=== PATIENT | female | born 1990 | race American Indian/Alaskan Native ===

== ENCOUNTER 2017-01-31 13:42 | Emergency (ER) | payer MEDICAID ==
[2017-01-31 13:47] VITALS: RESP 18; TEMP 97.8
[2017-01-31 13:50] VITALS: BMI 22.4
--- NOTE | 2017-01-31 14:44 | RAD ---
PROCEDURE: Right Ankle Radiographs. HISTORY: injury COMPARISON: None available FINDINGS: BONES: No acute displaced fracture. JOINTS: No dislocation. SOFT TISSUES: Soft tissue swelling. No evidence of radiopaque foreign body. OTHER FINDINGS: None. IMPRESSION: Soft tissue swelling. No acute displaced fracture, dislocation, or significant joint effusion identified. If symptoms persist or if there is clinical concern, x-ray follow-up in 7-10 days should be considered.
--- NOTE | 2017-01-31 14:48 | RAD ---
PROCEDURE: Right Foot Radiographs. HISTORY: foot injury COMPARISON: None available. FINDINGS: BONES: No acute displaced fracture. JOINTS: Joint space narrowing at the DIP of the 5th digit. No dislocation. SOFT TISSUES: Soft tissue swelling. No evidence of radiopaque foreign body. OTHER FINDINGS: None. IMPRESSION: Soft tissue swelling. No acute displaced fracture, dislocation, or significant joint effusion identified. If symptoms persist, or if there is continued clinical concern, x-ray follow-up in 7-10 days should be considered.
--- NOTE | 2017-01-31 14:55 | C.PDOC ---
History Of Present Illness 26 y/o female presents to ED with complaints of right ankle and foot pain since earlier today. Patient states she accidentally kicked bed and developed pain. Patient reports history of right ankle fracture and denies other injury, change in sensation or any other complaints at this time. Time Seen by Provider: 01/31/17 13:54 Chief Complaint (Nursing): Lower Extremity Problem/Injury History Per: Patient History/Exam Limitations: no limitations Onset/Duration Of Symptoms: Hrs Current Symptoms Are (Timing): Still Present Past Medical History Reviewed: Historical Data, Nursing Documentation, Vital Signs Vital Signs: Last Vital Signs Temp 97.8 F 01/31/17 13:45 Pulse 82 01/31/17 15:30 Resp 18 01/31/17 15:30 BP 118/65 01/31/17 15:30 Pulse Ox 98 01/31/17 15:30 - Medical History PMH: Anxiety, Asthma, Bronchitis Surgical History: - [facility] Procedures LOW CERVICAL (12/25/12) Family History: States: No Known Family Hx - Social History Hx Tobacco Use: Yes Hx Alcohol Use: No Hx Substance Use: No - Immunization History Hx Tetanus Toxoid Vaccination: Yes Hx Influenza Vaccination: Yes Hx Pneumococcal Vaccination: Yes Review Of Systems Constitutional: Negative for: Fever, Chills Eyes: Negative for: Vision Change Cardiovascular: Negative for: Chest Pain Gastrointestinal: Negative for: Nausea, Vomiting Musculoskeletal: Positive for: Foot Pain Skin: Negative for: Rash Neurological: Negative for: Weakness, Numbness Physical Exam - Physical Exam Appears: Non-toxic, No Acute Distress Skin: Warm, Dry, No Rash Head: Atraumatic, Normacephalic Eye(s): bilateral: Normal Inspection Oral Mucosa: Moist Chest: Symmetrical Extremity: Tenderness (to right lateral ankle), Capillary Refill (<2 seconds), No Deformity, Swelling (to right lateral ankle), Other (Vascular intact) Extremity: Bilateral: Normal ROM Pulses: Left Dorsalis Pedis: Normal, Right Dorsalis Pedis: Normal Neurological/Psych: Oriented x3, Normal Motor, Normal Sensation ED Course And Treatment O2 Sat by Pulse Oximetry: 100 (RA) Pulse Ox Interpretation: Normal Medical Decision Making Medical Decision Making: Assessment: Foot/ankle contusion Disposition Counseled Patient/Family Regarding: Diagnosis, Need For Followup, Rx Given - Disposition Referrals: Clinic,Med Surg [Primary Care Provider] - Disposition: HOME/ ROUTINE Disposition Time: 14:58 Condition: STABLE Additional Instructions: rest, ice, elevated take medication as needed for pain follow up in clinic in 2 days return to hospital if symptoms worsens or progress Prescriptions: Naproxen [Naprosyn] 500 mg PO BID PRN #16 tab PRN Reason: Pain, Moderate (4-7) Instructions: Contusion in Adults (ED) Forms: [facility] (Upper Sorbian), General Discharge Instructions - Clinical Impression Clinical Impression: Contusion - Scribe Statement The provider has reviewed the documentation as recorded by the Scribwendi Mccauley All medical record entries made by the Darionibwendi were at my direction and personally dictated by me. I have reviewed the chart and agree that the record accurately reflects my personal performance of the history, physical exam, medical decision making, and the department course for this patient. I have also personally directed, reviewed, and agree with the discharge instructions and disposition.
[2017-01-31 15:31] VITALS: BP 118/65; PULSE 82
[2017-02-06 07:41] VITALS: O2SAT 100
== END 2017-01-31 15:31 | disposition home or self-care (01) ==
LOC: SUPCPDRO 13:42 → C.ER 13:42
DX: S90.01XA Contusion of right ankle, initial encounter (principal); W22.8XXA Striking against or struck by other objects, initial encounter

== ENCOUNTER 2017-05-15 12:40 | Emergency (ER) | payer MEDICAID ==
[2017-05-15 12:40] VITALS: BMI 22.4
[2017-05-15 12:53] VITALS: BP 113/62; PULSE 85; RESP 18; TEMP 97.9; O2SAT 97
--- NOTE | 2017-05-15 14:25 | RAD ---
Right hand four views History: Pain. Comparison: None available. Findings: Question mild subluxation at the 1st MCP joint space with a suggestion of a somewhat fixed flexion at that level. Clinical correlation. Probable accessory ossicle at the volar base of the 1st distal phalanx. Impression Question mild subluxation at the 1st MCP joint space with a suggestion of a somewhat fixed flexion at that level. Clinical correlation. Probable accessory ossicle at the volar base of the 1st distal phalanx. If pain persists, consider MRI.
--- NOTE | 2017-05-15 14:36 | C.PDOC ---
History Of Present Illness 27-year-old female, Time Seen by Provider: 05/15/17 12:57 Chief Complaint (Nursing): Finger,Hand,&Wrist Past Medical History Reviewed: Historical Data, Nursing Documentation, Vital Signs Vital Signs: Last Vital Signs Temp 97.9 F 05/15/17 12:51 Pulse 85 05/15/17 12:51 Resp 18 05/15/17 12:51 BP 113/62 05/15/17 12:51 Pulse Ox 97 05/15/17 12:51 - Medical History PMH: Anxiety, Asthma, Bronchitis Surgical History: - [facility] Procedures LOW CERVICAL (12/25/12) Family History: States: No Known Family Hx - Social History Hx Tobacco Use: Yes Hx Alcohol Use: No Hx Substance Use: No - Immunization History Hx Tetanus Toxoid Vaccination: Yes Hx Influenza Vaccination: Yes Hx Pneumococcal Vaccination: Yes ED Course And Treatment O2 Sat by Pulse Oximetry: 97 Progress Note: finger splint placed by hvac controls technician to right hand first digit. Disposition - Disposition - Scribe Statement The provider has reviewed the documentation as recorded by the Scribe (Claudia Hammonds) All medical record entries made by the Scribe were at my direction and personally dictated by me. I have reviewed the chart and agree that the record accurately reflects my personal performance of the history, physical exam, medical decision making, and the department course for this patient. I have also personally directed, reviewed, and agree with the discharge instructions and disposition.
--- NOTE | 2017-05-15 14:40 | C.PDOC ---
History Of Present Illness 27-year-old female, presents to the emergency department with complaints of pain to right thumb after jamming it while closing a door. Patient unable to flex. Also requesting removal of ring on 4th digit of Left hand, states she hasn 't been able to remove in 2 days. Denies numbness/weakness. Time Seen by Provider: 05/15/17 12:57 Chief Complaint (Nursing): Finger,Hand,&Wrist History Per: Patient History/Exam Limitations: no limitations Onset/Duration Of Symptoms: Days Current Symptoms Are (Timing): Still Present Past Medical History Reviewed: Historical Data, Nursing Documentation, Vital Signs Vital Signs: Last Vital Signs Temp 97.9 F 05/15/17 12:51 Pulse 85 05/15/17 12:51 Resp 18 05/15/17 12:51 BP 113/62 05/15/17 12:51 Pulse Ox 97 05/15/17 18:40 - Medical History PMH: Anxiety, Asthma, Bronchitis Surgical History: - [facility] Procedures LOW CERVICAL (12/25/12) Family History: States: No Known Family Hx - Social History Hx Tobacco Use: Yes Hx Alcohol Use: No Hx Substance Use: No - Immunization History Hx Tetanus Toxoid Vaccination: Yes Hx Influenza Vaccination: Yes Hx Pneumococcal Vaccination: Yes Review Of Systems Constitutional: Negative for: Fever Gastrointestinal: Negative for: Vomiting Musculoskeletal: Positive for: Other (finger pain) Skin: Negative for: Rash Neurological: Negative for: Weakness, Numbness Physical Exam - Physical Exam Appears: Non-toxic, No Acute Distress Skin: Normal Color, Warm, Dry, No Rash Head: Normacephalic Eye(s): bilateral: PERRL Nose: Normal Oral Mucosa: Moist Extremity: Tenderness, Capillary Refill (<2 seconds), No Deformity, Swelling, Other (Right hand: first digit, tenderness to palpation. No swelling. Limited range of motion/flexion at IP joint. MTP joint intact. Left hand: 4th digit with ring, mild swelling.) Pulses: Left Radial: Normal, Right Radial: Normal Neurological/Psych: Oriented x3, Normal Speech ED Course And Treatment O2 Sat by Pulse Oximetry: 97 (RA) Pulse Ox Interpretation: Normal - Other Rad XR R HAND X-Ray: Viewed By Me, Read By Radiologist Interpretation: Negative for fracture Progress Note: XR R hand ordered and reviewed. Patients thumb placed in splint by topography technician. Ring cutter used o remove ring from patients left hand. Will be discharged for outpatient f/u with hand surgeon in one week. Disposition Counseled Patient/Family Regarding: Diagnosis, Need For Followup, Rx Given - Disposition Referrals: Andrzej Iqbal MD [Staff Provider] - Disposition: HOME/ ROUTINE Disposition Time: 14:40 Condition: STABLE Additional Instructions: FOLLOW UP WITH HAND SPECIALIST WITHIN 1 WEEK USE MEDICATIONS DIRECTED RETURN TO ER IF SYMPTOMS WORSEN Prescriptions: Naproxen 375 mg PO BID PRN #20 tablet PRN Reason: pain Instructions: Finger Sprain (DC), Jammed Finger (DC) Forms: [employer] (Colombian) Print Language: UKRAINIAN - POA Present On Arrival: Falls Or Trauma - Clinical Impression Clinical Impression: Thumb sprain, Injury of collateral ligament of finger - Scribe Statement The provider has reviewed the documentation as recorded by the Scribe (Claudia Hmamonds) All medical record entries made by the Scribe were at my direction and personally dictated by me. I have reviewed the chart and agree that the record accurately reflects my personal performance of the history, physical exam, medical decision making, and the department course for this patient. I have also personally directed, reviewed, and agree with the discharge instructions and disposition.
== END 2017-05-15 14:47 | disposition home or self-care (01) ==
LOC: C.ER 12:40
DX: S63.601A Unspecified sprain of right thumb, initial encounter (principal); W22.8XXA Striking against or struck by other objects, initial encounter; S60.445A External constriction of left ring finger, initial encounter; W49.04XA Ring or other jewelry causing external constriction, initial encounter